=== PATIENT | female | born 1950 | race Caucasian/White ===

== ENCOUNTER → 2017-12-07 | Outpatient (CLI) | payer MEDICARE ==
[~2017-12-07] MED LIST: B Complete1 EACH PO; BENTYL20 MG PO; COD LIVER OIL1 EACH PO; ESTRTP VAG; GLUC500 PO; LOPE2C PO; LORA10 PO; METO25ER PO; MULVIT PO; MULVITMIND PO; OMEP20ER PO; OSTEO BI-FLEX1 EAC2 PO; VENL37.5 PO; XARELTO20 MG PO; Zofran Odt4 MG SL
== END | disposition home or self-care (01) ==
LOC: LAB 16:45 → LAB SHORT 16:45
DX: D48.5 Neoplasm of uncertain behavior of skin (principal)
CPT/HCPCS: 88305

== ENCOUNTER → 2018-03-17 | Outpatient (CLI) | payer MEDICARE | END | disposition home or self-care (01) | LOC: LAB EV 09:27 → LAB SHORT 09:27 → LAB 09:27 → EDSTATUS 03-08 09:10 → LAB FUT 03-08 09:10 | DX: R30.0 Dysuria (principal) | CPT/HCPCS: 87077; 87086; 87186 ==

== ENCOUNTER → 2018-03-30 | Outpatient (CLI) | payer MEDICARE | END | disposition home or self-care (01) | LOC: PLD 13:33 → LAB SHORT 13:33 | DX: D48.5 Neoplasm of uncertain behavior of skin (principal) | CPT/HCPCS: 88305 ==

== ENCOUNTER → 2018-04-01 | Outpatient (CLI) | payer MEDICARE ==
[2018-04-01 13:43] LABS: Appearance, Urine Hazy (Clear); Blood, Urine 5+ (Neg); Color, Urine Yellow (P-Yellow); Glucose Qualitative, Urine Neg (Neg); Ketones, Urine Neg (Neg); Leukocyte Esterase, Urine 3+ (Neg); Nitrite, Urine Pos (Neg); Protein, Urine 3+ (Neg); Specific Gravity, Urine 1.005 (1.003-1.022); Urobilinogen, Urine 1+ (Normal); pH, Urine 6.5 (5.0-8.0)
[2018-04-01 14:01] LABS: Bilirubin, Urine 1+ (Neg); Red Blood Cells, Urine 0-2 /hpf (0-2); White Blood Cells, Urine TNTC /hpf (0-5)
[2018-04-01 14:02] LABS: Bacteria Many /hpf; Squamous Epithelial Cells Rare /hpf (Few)
== END | disposition home or self-care (01) ==
LOC: LAB 13:15 → LAB SHORT 13:15
PROVIDERS: Nurse Practitioner Family
DX: R30.0 Dysuria (principal)
CPT/HCPCS: 81001; 87086

== ENCOUNTER → 2018-12-08 | Outpatient (CLI) | payer MEDICARE | END | disposition home or self-care (01) | LOC: LAB SHORT 16:49 → LAB EV 16:49 | DX: N30.01 Acute cystitis with hematuria (principal) | CPT/HCPCS: 87086 ==

== ENCOUNTER → 2019-06-30 | Outpatient (CLI) | payer MEDICARE | END | disposition home or self-care (01) | LOC: LAB EV 18:52 → LAB SHORT 18:52 | DX: N39.0 Urinary tract infection, site not specified (principal) | CPT/HCPCS: 87077; 87086; 87186 ==

== ENCOUNTER → 2020-01-29 | Outpatient (CLI) | payer MEDICARE ==
[~2020-01-29] MED LIST changes: +Loratadine10 MG PO; +OXYB5; +TOLT4 PO
[2020-01-29 11:56] LABS: BASOPHILS ABSOLUTE AUTO 0.04 K/mm3 (0.00-0.23); BASOPHILS PERCENT AUTO 0 % (0-2); EOSINOPHILS ABSOLUTE AUTO 0.01 K/mm3 (0.00-0.68); EOSINOPHILS PERCENT AUTO 0 % (0-6); Hematocrit 36.3 % (33.0-51.0); Hemoglobin 12.5 g/dL (11.5-16.0); IMMATURE GRAN ABSOLUTE AUTO 0.04 K/mm3 (0.00-0.10); IMMATURE GRAN PERCENT AUTO 0 % (0-1); LYMPHOCYTES ABSOLUTE AUTO 1.48 K/mm3 (0.84-5.20); LYMPHOCYTES PERCENT AUTO 15 % (21-46); MONOCYTES PERCENT AUTO 7 % (4-13); Mean Corpuscular HGB Conc 34.4 g/dL (31.5-36.5); Mean Corpuscular Volume 102 fL (80-100); Mean Platelet Volume 10.5 fL (9.1-12.4); NEUTROPHILS ABSOLUTE AUTO 7.35 K/mm3 (1.96-9.15); NEUTROPHILS PERCENT AUTO 76 % (41-73); Platelet Count 139 K/mm3 (150-400); RDW Standard Deviation 48.5 fL (35.1-46.3); Red Blood Cell Count 3.57 M/mm3 (3.80-5.20); White Blood Cell Count 9.62 K/mm3 (4.00-11.30)
[2020-01-29 12:06] LABS: Albumin/Globulin Ratio 0.8 (0.8-1.8); Bilirubin, Total 0.4 mg/dL (0.1-1.0); Bun/Creatinine Ratio 10.3 (12.0-20.0); Calcium, Blood 8.4 mg/dL (8.5-10.1); Creatinine, Blood 1.36 mg/dL (0.40-1.00); Potassium, Blood 3.7 mmol/L (3.5-5.5)
== END | disposition home or self-care (01) ==
LOC: LAB SHORT 11:52 → LAB EV 11:52
PROVIDERS: Physician Assistant Medical
DX: R50.9 Fever, unspecified (principal)
CPT/HCPCS: 80053; 85025

== ENCOUNTER → 2020-07-12 | Outpatient (CLI) | payer MEDICARE | END | disposition home or self-care (01) | LOC: LAB SHORT 11:00 → LAB EV 11:00 | DX: R30.9 Painful micturition, unspecified (principal) | CPT/HCPCS: 87077; 87086; 87186 ==

== ENCOUNTER → 2021-04-09 | Outpatient (CLI) | payer MEDICARE | END | disposition home or self-care (01) | LOC: LAB SHORT 13:22 | DX: A49.9 Bacterial infection, unspecified (principal) | CPT/HCPCS: 87070; 87077; 87186; 87205 ==

== ENCOUNTER → 2021-04-14 | Outpatient (CLI) | payer MEDICARE | END | disposition home or self-care (01) | LOC: LAB SHORT 12:25 → LAB 12:25 | DX: N39.0 Urinary tract infection, site not specified (principal) | CPT/HCPCS: 87077; 87086; 87186 ==

== ENCOUNTER → 2021-04-21 | Outpatient (CLI) | payer MEDICARE | END | disposition home or self-care (01) | LOC: LAB SHORT 12:00 → LAB 12:00 | DX: R30.0 Dysuria (principal) | CPT/HCPCS: 87077; 87086; 87186 ==

== ENCOUNTER → 2021-08-25 | Outpatient (CLI) | payer MEDICARE | END | disposition home or self-care (01) | LOC: LAB 16:04 → LAB SHORT 16:04 | DX: N39.0 Urinary tract infection, site not specified (principal) | CPT/HCPCS: 87077; 87086; 87186 ==

== ENCOUNTER 2022-12-01 07:01 | Day surgery (SDC) | payer MEDICARE ==
[~2022-12-01] VITALS: Ht 165.1 cm; Wt 89.6 kg
[~2022-12-01 07:01] MED LIST changes: +ACETAMINOPHEN500 MG PO; +ALEVAZOL56.7 G1 TOP; +PROBIOTIC1 EA13 PO; +VITAMIN D325 MC3 PO
--- NOTE | 2022-12-01 08:05 | NUR ---
Ambulatory in Day Surgery History, Chart, Medications and Allergies reviewed before start of procedure. Pre-Op teaching done. Pt verbalizes understanding.
--- NOTE | 2022-12-01 08:10 | NUR ---
RASH NOTED TO BILATERAL GROIN AREA. DR CORDON INFORMED AND STATED OK TO PROCEED WITH SURGERY AND WILL ORDER NYSTATIN POWDER.
--- NOTE | 2022-12-01 16:15 | NUR ---
SHIFT SUMMARY S/P L TKA PT UP AND AMBULATING IN ROOM, WORKED WITH PT TODAY. PAIN CONTROLLED PER EMAR. VOIDING WELL. HAS SOME URGENCY. TOLERATING PO WELL. PRESCRIPTIONS PICKED UP PRIOR TO DISCHARGE. PLAN IS FOR HER TO WORK WITH THERAPY IN THE MORNING AND DISCHARGE TOMORROW.
--- NOTE | 2022-12-02 04:59 | NUR ---
SHIFT SUMMARY PT POD 0 LEFT TKA, PT HAS BEEN UP AND AMBULATING AND SHE HAS VOIDED. PT HAS HAD SEVERE NAUSEA WITH VOMITTING THIS SHIFT. PT MEDICATED PER EMAR WITH EFFECT. PT PAIN HAS BEEN WELL CONTROLLED PER EMAR. PT ABLE TO WIGGLE TOES, REPORTS TINGLING FROM ANESTHETIC BUT NO NUMBNESS. VITALS ARE STABLE. DRESSING C/D/I. BED IN LOWEST POSITION, CALL LIGHT WITHIN REACH.
[2022-12-02 05:33] LABS: BASOPHILS ABSOLUTE AUTO 0.03 K/mm3 (0.00-0.23); BASOPHILS PERCENT AUTO 0 % (0-2); EOSINOPHILS ABSOLUTE AUTO 0.03 K/mm3 (0.00-0.68); EOSINOPHILS PERCENT AUTO 0 % (0-6); Hematocrit 36.9 % (33.0-51.0); Hemoglobin 12.5 g/dL (11.5-16.0); IMMATURE GRAN ABSOLUTE AUTO 0.03 K/mm3 (0.00-0.10); IMMATURE GRAN PERCENT AUTO 0 % (0-1); LYMPHOCYTES ABSOLUTE AUTO 1.06 K/mm3 (0.84-5.20); LYMPHOCYTES PERCENT AUTO 11 % (21-46); MONOCYTES ABSOLUTE AUTO 0.82 K/mm3 (0.16-1.47); MONOCYTES PERCENT AUTO 9 % (4-13); Mean Corpuscular HGB 35.4 pg (26.0-34.0); Mean Corpuscular HGB Conc 33.9 g/dL (31.5-36.5); Mean Corpuscular Volume 105 fL (80-100); Mean Platelet Volume 10.8 fL (9.1-12.4); NEUTROPHILS ABSOLUTE AUTO 7.62 K/mm3 (1.96-9.15); NEUTROPHILS PERCENT AUTO 79 % (41-73); Platelet Count 186 K/mm3 (150-400); RDW Coefficient Variation 12.2 % (11.7-14.2); Red Blood Cell Count 3.53 M/mm3 (3.80-5.20); White Blood Cell Count 9.59 K/mm3 (4.00-11.30)
[2022-12-02 06:02] LABS: Bun/Creatinine Ratio 22.3 (12.0-20.0); Calcium, Blood 8.6 mg/dL (8.5-10.1); Creatinine, Blood 0.63 mg/dL (0.40-1.00); Potassium, Blood 3.7 mmol/L (3.5-5.5)
[2022-12-02] MEDS ORDERED: Percocet 5-3251 EACH PO (11:20)
[2022-12-02] MEDS ORDERED: NYSTOP15 GM TOP (11:20)
--- NOTE | 2022-12-02 12:18 | NUR ---
DISCHARGE SUMMARY PATIENT ALERT AND ORIENTED. SBA WITH FWW AND GAIT BELT TO AMBULATE IN ROOM AND HALLS. LEFT KNEE AQUACEL C/D/I. PAIN CONTROLLED WITH PO PAIN MEDS PER EMAR. TOLERATING REGULAR DIET AND LIQUIDS. VOIDING WELL. CLEARED FOR DISCHARGE BY PHYSICAL THERAPY. DISCHARGE EDUCATION GIVEN ON NEW MEDS, ACTIVITY, DIET, INCISION CARE, AND FOLLOW UP APPTS WITH ORTHO AND PT. IV DC'D WNL. PATIENT LEFT UNIT AT 1215 VIA WHEELCHAIR WITH FRIEND FOR HOME.
== END 2022-12-02 12:09 | disposition home or self-care (01) ==
LOC: ORSCMMR 07:01 → SURS 11:02 → ORSCMMR 12:30
PROVIDERS: Orthopaedic Surgery
PROC: 0SRD0JA Replacement of Left Knee Joint with Synthetic Substitute, Uncemented, Open Approach (ICD-10-PCS; principal; 2022-12-01 08:15)
DX: M17.12 Unilateral primary osteoarthritis, left knee (principal); I10 Essential (primary) hypertension; K21.9 Gastro-esophageal reflux disease without esophagitis; D68.51 Activated protein C resistance; Z79.01 Long term (current) use of anticoagulants; Z79.899 Other long term (current) drug therapy
CPT/HCPCS: 36415; 73560-LT; 80048; 85025; 97110; 97116; 97161; 97530; A9270; C1776; J0171; J0690; J0735; J1885; J2370; J2405; J2704; J2795; J3010; J3370; J7120

== ENCOUNTER → 2023-02-10 | Outpatient (CLI) | payer MEDICARE ==
[~2023-02-10] MED LIST changes: +NYSTOP15 GM TOP; +Percocet 5-3251 EACH PO
== END | disposition home or self-care (01) ==
LOC: LAB 15:20 → LAB SHORT 15:20
DX: L08.9 Local infection of the skin and subcutaneous tissue, unspecified (principal)
CPT/HCPCS: 87070; 87205

== ENCOUNTER → 2023-03-29 | Outpatient (CLI) | payer MEDICARE | END | disposition home or self-care (01) | LOC: LAB SHORT 09:56 → LAB 09:56 | DX: B37.2 Candidiasis of skin and nail (principal) | CPT/HCPCS: 87070; 87077; 87186; 87205 ==

== ENCOUNTER → 2024-03-01 | Outpatient (CLI) | payer MEDICARE ==
[2024-03-01 09:22] LABS: Source, Urine Clean Catch
[2024-03-01 10:37] LABS: Appearance, Urine Cloudy (Clear); Bilirubin, Urine Neg (Neg); Blood, Urine 1+ (Neg); Color, Urine Yellow (P-Yellow); Glucose Qualitative, Urine Neg (Neg); Ketones, Urine Neg (Neg); Leukocyte Esterase, Urine 3+ (Neg); Nitrite, Urine Pos (Neg); Protein, Urine 2+ (Neg); Specific Gravity, Urine 1.015 (1.003-1.022); Urobilinogen, Urine NORM (Normal)
[2024-03-01 10:55] LABS: Bacteria Many /hpf; Squamous Epithelial Cells Not Seen /hpf (Few); White Blood Cells, Urine 50-100 /hpf (0-5)
== END | disposition home or self-care (01) ==
LOC: LAB SHORT 09:19 → LAB 09:19
PROVIDERS: Obstetrics & Gynecology
DX: R39.15 Urgency of urination (principal)
CPT/HCPCS: 81001; 87077; 87086; 87186

== ENCOUNTER 2024-06-15 10:41 | Day surgery (SDC) | payer MEDICARE ==
[~2024-06-15] VITALS: Ht 165.1 cm; Wt 78.6 kg
[~2024-06-15 10:41] MED LIST changes: +Lactated Ringer's 1,000 ML IV ONE; +propofoL 50 ML IV ONE
[2024-06-15] MEDS ORDERED: ESTRADIOL10 MCG (11:21)
[2024-06-15] MEDS ORDERED: Lactated Ringer's 1,000 ML IV ONE (11:30)
[2024-06-15 13:23] VITALS: BP 145/83
== END 2024-06-15 13:00 | disposition home or self-care (01) ==
LOC: ORSCSDS 10:41
PROVIDERS: Internal Medicine Gastroenterology
PROC: 0DBL8ZX Excision of Transverse Colon, Via Natural or Artificial Opening Endoscopic, Diagnostic (ICD-10-PCS; principal; 2024-06-15 12:00)
DX: K62.89 Other specified diseases of anus and rectum (principal); D12.3 Benign neoplasm of transverse colon; K57.30 Diverticulosis of large intestine without perforation or abscess without bleeding; Z86.010 Personal history of colon polyps; I10 Essential (primary) hypertension; Z86.718 Personal history of other venous thrombosis and embolism; Z79.01 Long term (current) use of anticoagulants; Z79.899 Other long term (current) drug therapy
CPT/HCPCS: 88305; J2704; J7120

== ENCOUNTER 2024-08-12 02:58 | Emergency (ER) | payer MEDICARE ==
[~2024-08-12] VITALS: Ht 167.6 cm; Wt 80.7 kg
[~2024-08-12 02:58] MED LIST changes: +ESTRADIOL10 MCG; -Lactated Ringer's 1,000 ML IV ONE; -propofoL 50 ML IV ONE
[2024-08-12] MEDS ORDERED: Oxymetazoline 0.05% Nasal Relief Spray 15mL BTL ONE (03:05)
[2024-08-12] MEDS ORDERED: Tranexamic Acid 1000 MG/10 ML 10ML Vial (SDV) TOP ONE (03:05)
[2024-08-12] MEDS ORDERED: Silver Nitr/Potassium Nitrate 1 EA APPL TOP ONE (03:05)
[2024-08-12 03:21] LABS: BASOPHILS ABSOLUTE AUTO 0.05 K/mm3 (0.00-0.23); BASOPHILS PERCENT AUTO 1 % (0-2); EOSINOPHILS ABSOLUTE AUTO 0.18 K/mm3 (0.00-0.68); EOSINOPHILS PERCENT AUTO 2 % (0-6); Hematocrit 35.9 % (33.0-51.0); Hemoglobin 12.1 g/dL (11.5-16.0); IMMATURE GRAN ABSOLUTE AUTO 0.05 K/mm3 (0.00-0.10); IMMATURE GRAN PERCENT AUTO 1 % (0-1); LYMPHOCYTES ABSOLUTE AUTO 2.13 K/mm3 (0.84-5.20); LYMPHOCYTES PERCENT AUTO 21 % (21-46); MONOCYTES ABSOLUTE AUTO 0.47 K/mm3 (0.16-1.47); MONOCYTES PERCENT AUTO 5 % (4-13); Mean Corpuscular HGB 35.4 pg (26.0-34.0); Mean Corpuscular HGB Conc 33.7 g/dL (31.5-36.5); Mean Corpuscular Volume 105 fL (80-100); Mean Platelet Volume 10.5 fL (9.1-12.4); NEUTROPHILS ABSOLUTE AUTO 7.21 K/mm3 (1.96-9.15); NEUTROPHILS PERCENT AUTO 71 % (41-73); Platelet Count 187 K/mm3 (150-400); RDW Coefficient Variation 12.6 % (11.7-14.2); RDW Standard Deviation 48.8 fL (35.1-46.3); Red Blood Cell Count 3.42 M/mm3 (3.80-5.20); White Blood Cell Count 10.09 K/mm3 (4.00-11.30)
[2024-08-12] MEDS ORDERED: Ondansetron HCl 2 MG / ML 2ML Vial IV ONE (03:30)
[2024-08-12 03:33] LABS: Albumin, Blood 3.2 g/dL (3.4-5.0); Albumin/Globulin Ratio 1.1 (0.8-1.8); Bilirubin, Total 0.4 mg/dL (0.1-1.0); Bun/Creatinine Ratio 33.7 (12.0-20.0); Calcium, Blood 8.8 mg/dL (8.5-10.1); Creatinine, Blood 0.83 mg/dL (0.40-1.00); Globulin, Blood 2.9 g/dL (2.2-4.0); Potassium, Blood 4.4 mmol/L (3.5-5.5); Total Protein, Blood 6.1 g/dL (6.4-8.2)
[2024-08-12 03:37] LABS: International Normalized Ratio 1.22; Prothrombin Time Results 12.9 Sec (9.7-11.5)
[2024-08-12] MEDS ORDERED: Amoxicillin/Clavulanate K 875 MG Tab PO ONE (05:45)
[2024-08-12] MEDS ORDERED: AMOCLA875 PO (05:52)
[2024-08-12 06:00] VITALS: BP 125/76
[2024-08-13] MEDS ORDERED: ONDA4 PO (00:30)
[2024-08-13] MEDS ORDERED: AFRIN15 M6 (00:33)
== END 2024-08-12 06:33 | disposition home or self-care (01) ==
LOC: ER 02:58
PROVIDERS: Emergency Medicine
DX: R04.0 Epistaxis (principal); Z79.899 Other long term (current) drug therapy
CPT/HCPCS: 30903; 80053; 85025; 85610; 85730; 86900; 86901; 96374-59; 99284-25; A9270; J2405

== ENCOUNTER 2024-08-12 20:43 | Emergency (ER) | payer MEDICARE ==
[~2024-08-12] VITALS: Ht 165.1 cm; Wt 80.7 kg
[~2024-08-12 20:43] MED LIST changes: +AMOCLA875 PO
[2024-08-12 21:34] LABS: BASOPHILS ABSOLUTE AUTO 0.04 K/mm3 (0.00-0.23); BASOPHILS PERCENT AUTO 0 % (0-2); EOSINOPHILS ABSOLUTE AUTO 0.04 K/mm3 (0.00-0.68); EOSINOPHILS PERCENT AUTO 0 % (0-6); Hematocrit 34.7 % (33.0-51.0); Hemoglobin 11.8 g/dL (11.5-16.0); IMMATURE GRAN ABSOLUTE AUTO 0.02 K/mm3 (0.00-0.10); IMMATURE GRAN PERCENT AUTO 0 % (0-1); LYMPHOCYTES ABSOLUTE AUTO 1.85 K/mm3 (0.84-5.20); LYMPHOCYTES PERCENT AUTO 20 % (21-46); MONOCYTES ABSOLUTE AUTO 0.69 K/mm3 (0.16-1.47); MONOCYTES PERCENT AUTO 7 % (4-13); Mean Corpuscular HGB 35.1 pg (26.0-34.0); Mean Corpuscular Volume 103 fL (80-100); Mean Platelet Volume 10.3 fL (9.1-12.4); NEUTROPHILS ABSOLUTE AUTO 6.72 K/mm3 (1.96-9.15); NEUTROPHILS PERCENT AUTO 72 % (41-73); Platelet Count 191 K/mm3 (150-400); RDW Coefficient Variation 12.5 % (11.7-14.2); RDW Standard Deviation 47.4 fL (35.1-46.3); Red Blood Cell Count 3.36 M/mm3 (3.80-5.20); White Blood Cell Count 9.36 K/mm3 (4.00-11.30)
[2024-08-12 21:54] LABS: Albumin, Blood 3.6 g/dL (3.4-5.0); Albumin/Globulin Ratio 1.2 (0.8-1.8); Bilirubin, Total 0.6 mg/dL (0.1-1.0); Bun/Creatinine Ratio 27.6 (12.0-20.0); Calcium, Blood 9.5 mg/dL (8.5-10.1); Creatinine, Blood 0.73 mg/dL (0.40-1.00); Potassium, Blood 3.8 mmol/L (3.5-5.5); Total Protein, Blood 6.6 g/dL (6.4-8.2)
[2024-08-13] MEDS ORDERED: ONDA4 PO (00:30)
[2024-08-13] MEDS ORDERED: AFRIN15 M6 (00:33)
[2024-08-13] MEDS ORDERED: Tranexamic Acid 100 ML IV ONE (00:55)
[2024-08-13] MEDS ORDERED: Oxymetazoline 0.05% Nasal Relief Spray 15mL BTL PRN (00:55)
[2024-08-13] MEDS ORDERED: Silver Nitr/Potassium Nitrate 1 EA APPL TOP ONE (00:55)
[2024-08-13] MEDS ORDERED: Tranexamic Acid 1000 MG/10 ML 10ML Vial (SDV) ONE ×3 (00:56→09:55)
[2024-08-13] MEDS ORDERED: Acetaminophen 500 MG Tab PO ONE (01:55)
[2024-08-13] MEDS ORDERED: Ondansetron HCl 2 MG / ML 2ML Vial ONE (02:38)
[2024-08-13] MEDS ORDERED: Ondansetron HCl 2 MG / ML 2ML Vial IV ONE (02:45)
[2024-08-13 10:32] LABS: Calcium, Ionized (POC) 1.17 mmol/L (1.10-1.46); Chloride (POC) 103 mmol/L (98-108); Creatinine (POC) 0.8 mg/dL (0.6-1.0); Glucose (ISTAT POC) 115 mg/dL (70-99); Hemoglobin (POC) 11.2 g/dL (12.0-16.0); Potassium (POC) 4.1 mmol/L (3.5-5.5); Sodium (POC) 139 mmol/L (135-148); Total CO2 (POC) 25 mmol/L (21-32)
[2024-08-13 11:25] VITALS: BP 114/72
== END 2024-08-13 11:46 | disposition home or self-care (01) ==
LOC: ER 20:43
PROVIDERS: Emergency Medicine
DX: R04.0 Epistaxis (principal); M19.90 Unspecified osteoarthritis, unspecified site; Z79.899 Other long term (current) drug therapy
CPT/HCPCS: 30905; 80047; 80053; 85014; 85025; 96374-59; 99283-25; A9270; J2405

== ENCOUNTER 2024-08-15 08:29 | Emergency (ER) | payer MEDICARE ==
[~2024-08-15] VITALS: Ht 162.6 cm; Wt 70.3 kg
[~2024-08-15 08:29] MED LIST changes: +AFRIN15 M6; +ONDA4 PO
[2024-08-15 09:19] VITALS: BP 113/64
== END 2024-08-15 09:59 | disposition home or self-care (01) ==
LOC: ER 08:29
DX: Z48.00 Encounter for change or removal of nonsurgical wound dressing (principal); R04.0 Epistaxis
CPT/HCPCS: 99282

== ENCOUNTER → 2025-02-16 | Outpatient (CLI) | payer MEDICARE | END | disposition home or self-care (01) | LOC: LAB SHORT 14:23 → LAB 14:23 | DX: N39.0 Urinary tract infection, site not specified (principal) | CPT/HCPCS: 87077; 87086; 87186 ==

== ENCOUNTER → 2025-03-13 | Outpatient (CLI) | payer MEDICARE ==
[2025-03-14 14:07] LABS: Bacterial Vaginosis PCR Negative (NEGATIVE); Candida Group, PCR NOT DETECTED (NOT DETECT); Candida glabrata-krusei, PCR NOT DETECTED (NOT DETECT)
== END ==
LOC: LAB 18:37 → LAB SHORT 18:37
PROVIDERS: Internal Medicine
DX: R39.9 Unspecified symptoms and signs involving the genitourinary system (principal)
CPT/HCPCS: 81515; 87086